=== PATIENT | male | born 1990 | race Caucasian/White ===

== ENCOUNTER 2019-02-17 21:12 | Emergency (ER) | payer OTHER ==
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
[2019-02-17] MEDS ORDERED: NORCO 5/325 PO ONE (23:58)
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
[2019-02-18 05:09] VITALS: BP 121/79
== END 2019-02-18 05:08 | disposition home or self-care (01) ==
LOC: ED 21:12
DX: S16.1XXA Strain of muscle, fascia and tendon at neck level, initial encounter (principal); G44.319 Acute post-traumatic headache, not intractable; V89.2XXA Person injured in unspecified motor-vehicle accident, traffic, initial encounter; Y93.89 Activity, other specified; Y92.488 Other paved roadways as the place of occurrence of the external cause; Y99.8 Other external cause status
CPT/HCPCS: 70450; 72040

== ENCOUNTER 2019-08-25 17:14 | Emergency (ER) | payer BC, OTHER ==
--- NOTE | 2019-08-25 17:30 | Emergency Department Report ---
Blank Doc - Documentation Documentation: 28-year-old male that presents with right thumb pain. This initial assessment/diagnostic orders/clinical plan/treatment(s) is/are subject to change based on patient's health status, clinical progression and re- assessment by fellow clinical providers in the ED. Further treatment and workup at subsequent clinical providers discretion. Patient/guardians urged not to elope from the ED as their condition may be serious if not clinically assessed and managed. Initial orders include: 1- Patient sent to [facility] for further evaluation and treatment 2- x rays
--- NOTE | 2019-08-25 18:34 | XRay Report ---
Right thumb, 3 views INDICATION: Pain following injury several days ago FINDINGS: The joint spaces are intact. No fracture or dislocation. No spurring or arthritic change. N o foreign body is seen. No abnormality demonstrated. IMPRESSION: Negative thumb Signer Name: Kvng Stewart MD Signed: 08/25/2019 6:29 PM Workstation Name: [id number]
[2019-08-25] MEDS ORDERED: TETANUS,DIPH,PERTUSS(ACELL) VACCINE 0.5 ML SYRINGE IM ONE (19:23)
--- NOTE | 2019-08-25 19:28 | Emergency Department Report ---
ED Extremity Problem HPI - General Chief complaint: Extremity Injury, Upper Stated complaint: RT THUMB INJURY/SWELLING/PAIN Time Seen by Provider: 08/25/19 17:30 Source: patient Mode of arrival: Ambulatory Limitations: No Limitations - History of Present Illness Initial comments: Patient is a 28-year-old male presents emergency room with complaints of a right thumb injury that occurred 2 days ago. He states that he slammed his thumb in the metal car door. He is unsure when his last tetanus immunization was. He states he is able to move the thumb with some discomfort. He denies any prior injury of the thumb. He denies any past medical history or allergies medications. - Related Data Previous Rx's Medication Instructions Recorded Last Taken Type Cyclobenzaprine [Flexeril] 10 mg PO TID PRN #12 tablet 02/18/19 Unknown Rx Ibuprofen [Motrin] 600 mg PO Q8H PRN #12 tablet 02/18/19 Unknown Rx Ibuprofen [Motrin 600 MG tab] 600 mg PO Q8H PRN #14 tablet 08/25/19 Unknown Rx cephALEXin [Keflex] 250 mg PO QID 7 Days #28 capsule 08/25/19 Unknown Rx Allergies Allergy/AdvReac Type Severity Reaction Status Date / Time No Known Allergies Allergy Unverified 02/17/19 21:34 ED Review of Systems ROS: Stated complaint: RT THUMB INJURY/SWELLING/PAIN Other details as noted in HPI Comment: All other systems reviewed and negative ED Past Medical Hx - Past Medical History Previous Medical History?: No - Surgical History Past Surgical History?: Yes Additional Surgical History: Right wrist surgery - Social History Smoking Status: Never Smoker Substance Use Type: None - Medications Home Medications: Home Medications Medication Instructions Recorded Confirmed Last Taken Type Cyclobenzaprine [Flexeril] 10 mg PO TID PRN #12 tablet 02/18/19 Unknown Rx Ibuprofen [Motrin] 600 mg PO Q8H PRN #12 tablet 02/18/19 Unknown Rx Ibuprofen [Motrin 600 MG tab] 600 mg PO Q8H PRN #14 tablet 08/25/19 Unknown Rx cephALEXin [Keflex] 250 mg PO QID 7 Days #28 capsule 08/25/19 Unknown Rx ED Physical Exam - General Limitations: No Limitations General appearance: alert, in no apparent distress - Head Head exam: Present: atraumatic, normocephalic - Eye Eye exam: Present: normal appearance - ENT ENT exam: Present: mucous membranes moist - Extremities Exam Extremities exam: Present: other (TTP to the distal end of the right thumb, small amount of edema and erythema present, no purulent drainage, no fluctuance, there is an injury to the right thumb nail, nail is split horizontally, nail bed intact, neurovascularly intact) - Neurological Exam Neurological exam: Present: alert, oriented X3 - Psychiatric Psychiatric exam: Present: normal affect, normal mood - Skin Skin exam: Present: warm, dry ED Course Vital Signs 08/25/19 08/25/19 17:31 23:36 Temperature 98.5 F Pulse Rate 92 H 90 Respiratory 16 16 Rate Blood Pressure 142/83 Blood Pressure 139/80 [Right] O2 Sat by Pulse 97 98 Oximetry ED Medical Decision Making - Radiology Data Radiology results: report reviewed Right thumb, 3 views INDICATION: Pain following injury several days ago FINDINGS: The joint spaces are intact. No fracture or dislocation. No spurring or arthritic change. No foreign body is seen. No abnormality demonstrated. IMPRESSION: Negative thumb Signer Name: Kvng Stewart MD Signed: 08/25/2019 6:29 PM Workstation Name: [id number] Transcribed By: RHONDA Dictated By: Kvng Stewart MD Electronically Authenticated By: Kvng Stewart MD Signed Date/Time: 08/25/191828 DD/ 28 TD/TT: - Medical Decision Making Patient is a 28-year-old male presents emergency room with complaints of a right thumb injury that occurred 2 days ago. He states that he slammed his thumb in the metal car door. He is unsure when his last tetanus immunization was. He states he is able to move the thumb with some discomfort. He denies any prior injury of the thumb. He denies any past medical history or allergies medications. VSS. on exam: TTP to the distal end of the right thumb, small amount of edema and erythema present, no purulent drainage, no fluctuance, there is an injury to the right thumb nail, nail is split horizontally, nail bed intact, neurovascularly intact. XR of the right thumb: The joint spaces are intact. No fracture or dislocation. No spurring or arthritic change.No foreign body is seen. No abnormality demonstrated. Patient given tetanus immunization. Patient placed on antibiotics. advised pt to please take medication as prescribed. Follow up with your primary care doctor in the next 3 days for reexamination. Return to the emergency room for any new or worsening symptoms. - Differential Diagnosis strain, sprain, fx, dislocation, nail avulsion, subungal hematoma Critical care attestation.: If time is entered above; I have spent that time in minutes in the direct care of this critically ill patient, excluding procedure time. ED Disposition Clinical Impression: Nail avulsion Injury of right thumb Qualifiers: Encounter type: initial encounter Qualified Code(s): S69.91XA - Unspecified injury of right wrist, hand and finger(s), initial encounter Disposition: TO HOME OR SELFCARE Is pt being admited?: No Does the pt Need Aspirin: No Condition: Stable Instructions: Finger Sprain (ED) Additional Instructions: Please take medication as prescribed. Follow up with your primary care doctor in the next 3 days for reexamination. Return to the emergency room for any new or worsening symptoms. Prescriptions: cephALEXin [Keflex] 250 mg PO QID 7 Days #28 capsule Ibuprofen [Motrin 600 MG tab] 600 mg PO Q8H PRN #14 tablet PRN Reason: Pain Referrals: [facility] [Provider Group] - 2-3 Days Time of Disposition: 19:28 Print Language: IRISH
[2019-08-25 23:38] VITALS: BP 139/80
== END 2019-08-25 19:55 | disposition home or self-care (01) ==
LOC: ED 17:14
DX: S61.101A Unspecified open wound of right thumb with damage to nail, initial encounter (principal); Z98.890 Other specified postprocedural states; Z79.899 Other long term (current) drug therapy; W22.8XXA Striking against or struck by other objects, initial encounter; Y93.89 Activity, other specified; Y92.89 Other specified places as the place of occurrence of the external cause; Y99.8 Other external cause status
CPT/HCPCS: 90471; 90715